=== PATIENT | male | born 1985 | race Two or more races ===

== ENCOUNTER 2018-01-14 21:09 | Emergency (ER) | payer SELFPAY ==
[~2018-01-14] VITALS: Ht 172.7 cm; Wt 99.8 kg
[2018-01-15] MEDS ORDERED: GLUCAGON HYDROCHLORIDE (RDNA) 1 MG VIAL IM ONE (01:15)
[2018-01-15] MEDS ORDERED: ONDANSETRON ODT 4 MG TAB PO ONE (01:15)
[2018-01-15 02:31] VITALS: BP 152/92
[2018-01-15] MEDS ORDERED: DEXAMETHASONE SOD PHOS 10MG/1ML VIAL INJ IM ONE ×2 (03:15)
== END 2018-01-15 02:59 | disposition home or self-care (01) ==
LOC: ER 21:15
DX: T18.128A Food in esophagus causing other injury, initial encounter (principal); X58.XXXA Exposure to other specified factors, initial encounter; Y93.89 Activity, other specified; Y99.8 Other external cause status; Y92.89 Other specified places as the place of occurrence of the external cause
CPT/HCPCS: 70360; 96372; 99284; J1100; J1610; Q0162

== ENCOUNTER → 2018-01-15 | Emergency (ER) | payer SELFPAY | END | disposition left against medical advice (07) | LOC: ER 19:46 | DX: R11.2 Nausea with vomiting, unspecified (principal); Z53.21 Procedure and treatment not carried out due to patient leaving prior to being seen by health care provider ==